=== PATIENT | female | born 1965 | race Caucasian/White ===

== ENCOUNTER 2024-06-06 12:46 | Emergency (ER) | payer BC, SELFPAY ==
--- OUTSIDE RECORDS SUMMARY | 2024-06-06 12:47 | XMS_ITS | Data Portability ---
Author Organization [employer] [employer], [id number] Address [address] [place] [address] Assessment No assessment recorded. Plan of Treatment Reminders Order Date Submit Date Provider Last Modified By Organization Details Last Modified Time Details Appointments None record ed. Lab None record ed. Referral None record ed. Procedures None record ed. Surgeries None record ed. Imaging None record ed. Medication Orders None record ed. Patient TargetsNo targets recorded. Patient InstructionsNo instructions recorded. Reason for Referral None Reported. Problems Name Problem SNOMED Code Status Onset Date Resolution Date Notes Provider Name and Address Organization Details Recorded Time Uses IUD (intraut erine device) contrace ption 919530458 Completed 201212/18/2020 Removal Reason: resolved Cici Clark(TE RM) null, [facility] [employer] 15:45:05 Pulmonar y embolism 01591299 Active 2020 Cici Clark(TE RM) null, [facility] [employer] 15:56:28 Deep venous thrombos is 749737214 Active 2020 Cici lCark(TE RM) null, [facility] [employer] 15:56:38 Problem Notes None recorded. Procedures Surgical History Date Name Laterality Status Provider Name and Address Organization Details Recorded Time 12/19/19 21 [facility] [place] [address] [facility],[address], [place], [address], [place] [employer] 12/18/2020 20:55:15 06/16/19 19 Date of Last Colonoscopy completed Cici Clark(TERM) [facility] 12/18/2020 15:55:54 06/14/19 19 Date of Last Pap Smear completed Cici Clark(TERM) [facility] 12/18/2020 15:55:54 03/08/20 15 Date of Last Mammogram completed Cici Clark(TERM) [facility] 12/18/2020 15:55:54 spontaneous unassisted delivery, medical personnel present completed Cici Clark(TERM) [facility] 12/18/2020 15:55:55 dilation and curettage completed Cici Clark(TERM) [facility] 12/18/2020 15:55:55 Dilation and Curettage completed Cici Clark(TERM) [facility] 12/18/2020 15:55:55 Colonoscopy completed Cici Clark(TERM) [facility] 12/18/2020 15:55:55 Tonsillectomy completed Cici Clark(TERM) [facility] 12/18/2020 15:55:55 Imaging Results None recorded. Procedure Notes None recorded. Medical Equipment None Reported. Allergies Allergen ID Allergen Name Allergen Category Reaction Reaction Severity Criticality Documentation Date Start Date Code Code System Note Provider Name and Address Organization Details Recorded Time 494625 Medicinal product containin g penicilli n and acting as antibacte rial agent (product) medicatio n rash Not available Not available 01/12/2020 19717 05 SNOMED Not Available [facility] 14:05:41 Medications Name Sig Start Date Stop Date Status Note LastModified by Organization Details LastModified Time Eliquis 5 mg tablet active Not Available Not Available Not Available Eliquis DVT-PE Treatment 30-Day Starter 5 mg (74 tablets) in dose pack active Not Available Not Available Not Available Vitals Date Recorded Body weight Body mass index (BMI) Body height Systolic blood pressure Diastolic blood pressure Provider Name and Address Organization Details Last Updated DateTime 12/18/2020 244724.7 4 g 44 kg/m2 170.18 cm 128 mm[Hg] 86 mm[Hg] Cici Clark(TE RM) [facility] 15:55:38 Social History Question Answer Notes LastModified by Organizat [employer] Details LastModified Time Tobacco Smoking Status Never Smoker never Not Available [facility] 01/13/2020 01:58:43 What Is Your Level Of Alcohol Consumption? Occasional Yes [email or web address] Information not available 01/13/2020 What Is Your Level Of Caffeine Consumption? Moderate Information not available 12/18/2020 Do You Or Have You Ever Used E-cigarettes Or Vape? Never Used Electronic Cigarettes Information not available 12/18/2020 History Of Domestic Violence No Information not available 12/18/2020 Marital Status Informatio n not available 12/18/2020 Sex: Unknown Functional Status Question Answer Note LastModified by Organizat ion Details LastModified Time What is your exercise level? Occasional walking Information not available 12/18/2020 Mental Status None recorded. Family History Relationship Description Onset Age of this Age Resolved Age Notes LastModified by Organization Details LastModified Time Maternal Grandfather Family history of Myocardial infarction Not available 12/18 15:55:54 Father Family history of cardiovascul ar disease in first degree female relative less than 65 years of age Not available 15:55:54 Father Congestive heart failure Not available 2020 15:55:54 Medical History Condition Response Endocrinology- History of Gestational Di abetes Y ID- Usual childhood diseases- Chicken Po x Y Gynecological History Statement/Question Response History of Abnormal PAP N HPV Test Negative Date of Last Mammogram 03/08/2015 Date of Last Diabetes Screening 08/07/19 19 12 Post Menopausal Hormone Therapy User Nev er Date of Last Colonoscopy 06/16/2018 History of Sexually Transmitted Infectio n N N HPV Vaccine Not Completed Current Control Method IUD Date of Last Pap Smear 06/14/2018 Date of Last Cholesterol Screening 08/06 Obstetrics History GPAL:G 1 P 1 0 2 1 Type Value Multiple Births 0 Full Term 1 Induced 0 Spontaneous 2 Premature 0 Living 1 Ectopics 0 Total 1 Past Encounters Encounter ID Performer Location Encounter Start Date Encounter Closed Date Diagnosis/Indication Diagnosis SNOMED-CT Code Diagnosis ICD10 Code [id number] DAYANARA KIM MD [id number] [address] [address] [place] [id number] 12/18/2020 15:47:56 12/18/2020 16:18:32 Removal of intrauterine device 79219397 Z30.432 Menopausal syndrome 1237 73026 N95.9 Body mass index 30+ - obesity 503712294 Z68.41 Health Concerns Section Related Observation LastModified by Organization Detai ls LastModified Time None Recorded Concern Status LastModified by Organization Details LastModified Time None Recorded Advance Directives Directive None Recorded Payers Encounter Date Sequence Insurance Name Policy Number Policy Gomes Covered Member ID Gomes Member ID Guarantor Name 12/18/2020 1 [place] [id number] Patricia Anderson [id number] Patricia Anderson Notes Date Note Type Note Provider Name and Address Organization Details Recorded Time 12/18/2020 text/html [place] [address] [facility],[address], [place], [address], [place] [facility] [employer] 12/18/2020 20:56:43 OBGyn Episode No OBEpisode recorded.
[2024-06-06 14:22] VITALS: BP 153/89; PULSE 72; RESP 16; TEMP 36.7; O2SAT 96; BMI 47.0
[2024-06-06 15:24] LABS: PCR FLU A Negative PCR FLU A (Negative); PCR FLU B Negative PCR FLU B (Negative); PCR RSV Negative PCR RSV (Negative); SARS PCR* Negative SARS-CoV-2 (Negative)
[2024-06-06 16:39] VITALS: PULSE 84; O2SAT 95
--- NOTE | 2024-06-06 16:58 | ED.GENADULT ---
HPI - General Adult General Chief complaint: Cough Stated complaint: cough x 5 days Time Seen by Provider: 06/06/24 16:31 History of Present Illness HPI narrative: This 59-year-old female comes in reporting cough for at least the past 5 days. She does not report any shortness of breath or fevers. She has been taking some jvjt-iov-aqfggbq medications without much relief. She arrives here with normal vital signs. Related Data Previous Rx's ?Medication ?Instructions ?Recorded acetaminophen 300 mg-codeine 30 mg 1 tab PO Q6H PRN pain #20 tabs 06/06/24 tablet methylprednisolone 4 mg tablets in See Rx Instructions PO .COMPLEX 06/06/24 a dose pack (Medrol (Ishan)) #21 ea Allergies Allergy/AdvReac Type Severity Reaction Status Date / Time Penicillins Allergy Unknown Verified 06/06/24 14:25 Review of Systems Status of ROS: Reports: 10 or more systems reviewed and unremarkable except as noted in History and below Narrative: Constitutional: No fevers, no weight gain or loss. Eyes: No discharge. No vision changes. HENT: No congestion, no sore throat, no ear pain. Cardiovascular: No chest pain, no palpitations. Respiratory: No shortness of breath, no wheezes. Frequent nonproductive cough. Gastrointestinal: No abdominal pain, no vomiting, no diarrhea. Genitourinary: No dysuria, no hematuria. Musculoskeletal: Normal range of motion. Skin: No rashes, no pruritis. Neurological: No dizziness, weakness, sensory change, speech change. Endo/Heme/Allergies: No bruising or bleeding. No polydipsia. Pysch: no suicidality, no anxiety, no insomnia. All other systems reviewed and are negative. Exam Narrative: Exam Narrative: Constitutional: Well-developed, well-nourished, no acute distress. HEENT: Normocephalic, atraumatic. Neck: Normal range of motion. Nontender. Supple. Heart: Regular. No murmurs. Normal rate. Intact distal pulses. Lungs: Clear to auscultation. No wheezes, rhonchi, or rales. Some mild chest discomfort when coughing. Abdomen: Normal bowel sounds. Nontender. No rebound tenderness. Genitalia: Deferred. Back: No midline tenderness. Normal range of motion. Extremities: Normal range of motion. No injury. Skin: Intact. No rash. Warm. No erythema or pallor. Neurologic: No altered sensation. No weakness. Alert and oriented. Psychiatric: No suicidality. No anxiety or depression. No insomnia. Nursing notes and vitals signs are reviewed. Const: Vital Signs, click to edit/add: Vital Signs - 24 hr 06/06/24 14:22 06/06/24 16:39 Temperature 98.0 F Pulse Rate [Pulse Oximeter] 72 84 Respiratory Rate 16 Blood Pressure [Ri t Upper Arm] 153/89 H Pulse Oximetry 96 95 Oxygen Delivery Me thod Room Air Room Air Course Vital Signs Vital signs: Initial Vital Signs Temperature 98.0 F 06/06/24 14:22 Temperature Source Temporal Artery Scan 06/06/24 14:22 Pulse Rate 72 06/06/24 14:22 Respiratory Rate 16 06/06/24 14:22 Blood Pressure 153/89 H 06/06/24 14:22 Blood Pressure Mean 110 H 06/06/24 14:22 Blood Pressure Position Sitting 06/06/24 14:22 Pulse Oximetry 96 06/06/24 14:22 Oxygen Delivery Method Room Air 06/06/24 14:22 Vital Signs Temperature 98.0 F 06/06/24 14:22 Pulse Rate 72 06/06/24 14:22 Respiratory Rate 16 06/06/24 14:22 Blood Pressure 153/89 H 06/06/24 14:22 Pulse Oximetry 96 06/06/24 14:22 Oxygen Delivery Method Room Air 06/06/24 14:22 Temperature 98.0 F 06/06/24 14:22 Pulse Rate 84 06/06/24 16:39 Respiratory Rate 16 06/06/24 14:22 Blood Pressure 153/89 H 06/06/24 14:22 Pulse Oximetry 95 06/06/24 16:39 Oxygen Delivery Method Room Air 06/06/24 16:39 Medical Decision Making MDM Narrative Medical decision making narrative: This patient comes in reporting persistent unrelenting cough over the past 5+ days. She arrives here with normal vital signs. Her lungs sound clear bilaterally and she is not using accessory muscles for breathing. A nasal pharyngeal swab returns negative for viruses tested. Most likely this patient does have a viral upper respiratory infection. Her exam and vital signs are reassuring. She did receive a prescription for some tablets of Tylenol 3 for symptomatic relief and also a prescription for Medrol Dosepak. I did advise her regarding signs and symptoms that would indicate a need for return and re-evaluation. Lab Data Labs: Lab Results 06/06/24 Range/Units 14:25 SARS-CoV-2 (PCR) Negative SARS-CoV-2 (Negative) Influenza Type A (PCR) Negative PCR FLU A (Negative) Influenza Type B (PCR) Negative PCR FLU B (Negative) RSV (PCR) Negative PCR RSV (Negative) Discharge Plan Discharge Clinical Impression: Acute upper respiratory infection Patient Disposition: Home, Self-Care Condition: Stable Additional Instructions: Take medication as needed and directed. Use dypq-zuo-lmpofbd medicines also as instructed. Follow up with MD return if worsening symptoms occur. Prescriptions: New acetaminophen-codeine 300-30 mg tablet 1 tab PO Q6H PRN (Reason: pain) Qty: 20 0RF methylprednisolone [Medrol (Ishan)] 4 mg tablets,dose pack See Rx Instructions .ROUTE .COMPLEX Qty: 21 0RF Rx Instructions: orally per package directions Stand Alone Forms: [employer] Info Instructions
--- OUTSIDE RECORDS SUMMARY | 2024-06-06 17:10 | XMS_ITS | Data Portability ---
Author Organization [place] [facility] [place] [facility] Address [address] [place] [address] Care Team Providers Care Building Construction Foreman Name Role Phone SEVERIANO MUNOZ Primary Care Provider Assessment Encounter Date Assessment Date Assessment LastModified by Organization Details LastModified Time 01/24/2021 01/24/2021 56 Y/O FEMALE, HX RT FLANK PAIN AND HEMATURIA. C.T. RT DISTAL STONE (6MM), ALSO ADDITIONAL NON OBSTRUCTIVE RT AND LEFT RENAL STONES. FIRST EPISODE. ON ELOQUIS FOR RECENT P.E. , DVT. REVIEWED FINDINGS. REVIEWED C.T. RESULTS INTERVIEW WITH PRESENT. PLAN SCHEDULE CYSTO, RT URS, HLL, POSSIBLE RT STENT. PROCEDURE EXPLAINED IN DETAIL. Not available 01/24/2021 12:36:41 Plan of Treatment Reminders Order Date Submit Date Provider Last Modified By Organization Details Last Modified Time Details Appointments None record ed. Lab None record ed. Referral None record ed. Procedures None record ed. Surgeries None record ed. Imaging None record ed. Medication Orders None record ed. Patient TargetsNo targets recorded. Patient Instructions Encounter Date Encounter Id Patient Instructions Last Modified By Organization Details Last Modified Time 05/26/2023 [id number] will plan follow up 1 year with KUB. call if problems develop [email or web address] Not available 05/26/2023 10:12:29 Reason for Referral None Reported. Results Created Date Observation Date Name Description Value Unit Range Abnormal Flag Note LastModifiedBy Organization Detail LastModifiedTime 01/25/20 21 01/22/2021 CT, abdom en + pelvi s, w/ contr ast No observ ation record ed. [email or web address] Not Available 2020 12:23:48 02/08/20 21 01/31/2021 XR, kidne y + urete r + bladd er No observ ation record ed. [email or web address] Not Available 2020 12:45:09 05/25/20 23 04/19/2023 CT, abdom en + pelvi s, w/o contr ast No observ ation record ed. [email or web address] Not Available 2022 15:46:43 Result Notes None recorded. Procedures Surgical History Date Name Laterality Status Provider Name and Address Organization Details Recorded Time colonoscopy completed Thom Claros MD [address] [facility] [address], [place], [address], [facility] 01/24/2021 12:15:21 tonsillectomy completed Murray Bland [facility] 05/26/2023 09:53:19 Imaging Results Imaging Date Name Status LastModified by Organiz ation Details LastModified Time 01/22/2021 CT, abdomen + pelvis, w/ contrast completed Information not available 01/24/2021 12:23:48 01/31/2021 XR, kidney + ureter + bladder completed [email or web address] Information not available 02/07/2021 12:45:09 04/19/2023 CT, abdomen + pelvis, w/o contrast completed Information not available 05/25/2023 15:46:43 Procedure Notes None recorded. Medical Equipment None Reported. Allergies Allergen ID Allergen Name Allergen Category Reaction Reaction Severity Criticality Documentation Date Start Date Code Code System Note Provider Name and Address Organization Details Recorded Time [id number] 0622714g5 2824e Medicinal product containin g penicilli n and acting as antibacte rial agent (product) medicatio n Not available Not available Not available 01/24/2021 63848 05 SNOMED Not Available Not Available Not Available Medications Name Sig Start Date Stop Date Status Note LastModified by Organization Details LastModified Time daylight mis 05/26 completed Not Available Not Available Not Available sleepio mis 05/26 completed Not Available Not Available Not Available ondansetron 8 mg disintegrat ing tablet 05/26 completed Not Available Not Available Not Available ketorolac 10 mg tablet 05/26 completed Not Available Not Available Not Available oxycodone-a cetaminophe n 5 mg-325 mg tablet 05/26 completed Not Available Not Available Not Available tamsulosin 0.4 mg capsule TAKE 1 CAPSULE BY MOUTH EVERY DAY AFTER A MEAL 05/26 completed Not Available Not Available Not Available ondansetron 4 mg disintegrat ing tablet 05/26 completed Not Available Not Available Not Available oxycodone 5 mg tablet 05/26 completed Not Available Not Available Not Available Eliquis 5 mg tablet 05/26 completed Not Available Not Available Not Available Eliquis DVT-PE Treatment 30-Day Starter 5 mg (74 tablets) in dose pack 05/26 completed Not Available Not Available Not Available BinaxNOW COVID-19 Ag Self Test kit Use as Directed on the Package 05/26 completed Not Available Not Available Not Available Vitals Date Recorded Body height Body mass index (BMI) Body weight Provider Name and Address Organization Details Last Updated DateTime 05/26/2023 170.18 cm 43.9 kg/m2 874872.[address] [facility] 05/26/2023 09:52:00 Date Recorded Body height Body mass index (BMI) Body weight Provider Name and Address Organization Details Last Updated DateTime 01/24/2021 170.18 cm 43.9 kg/m2 376134.86 g Thom Claros MD [address] [place] [address], [address] 01/24/2021 12:14:25 Social History Question Answer Notes LastModified by Organizat ion Details LastModified Time Tobacco Smoking Status Never Smoker Thom Claros MD [address] [place] [address],[address], [address] 01/24/2021 12:14:51 What Is Your Level Of Alcohol Consumption? Moderate Information not available 05/26/2023 What Is Your Level Of Caffeine Consumption? 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 01/24/2021 Information not available 01/24/2021 Sex: Unknown Functional Status None recorded. Mental Status None recorded. Family History Relationship Description Onset Age of this Age Resolved Age Notes LastModified by Organization Details LastModified Time Father Family history of cardiac disorder [email or web address] Not available 2022 09:52:52 Sister Family history of renal stone [email or web address] Not available 05/08 09:53:00 Medical History Condition Response Sexually Transmitted Infection N Diabetes N Other N Bleeding Disorder N High Blood Pressure N Kidney Stones Y High Cholesterol N GERD/Acid Reflux N Heart Disease N Cancer N Lung Disease N Depression N Gynecological HistoryNo gynecological history recorded. Obstetrics History GPAL:G 1 P 0 0 0 0 Immunizations Vaccine Type Date Status Note Provider Nam e and Address Organization Details Recorded Time Influenza, MDCK, quadrivalent, PF 1 completed Qing sutherland [facility] 05/26/2023 15:34:44 COVID-19, mRNA, LNP-S, PF, 30 mcg/0.3 mL dose [facility] 15:34:44 COVID-19 vaccine, vector-nr, rS-Ad26, PF, 0.5 mL [facility] 15:34:44 COVID-19, mRNA, LNP-S, bivalent, PF, 30 mcg/0.3 mL dose 3 completed Qing sutherland [facility] 05/26/2023 15:34:44 [facility]dap [facility] 15:34:44 Influenza, split virus, trivalent, preservative 4 completed Qing sutherland [facility] 05/26/2023 15:34:44 Influenza, split virus, trivalent, PF 0 [facility] 15:34:44 Past Encounters Encounter ID Performer Location Encounter Start Date Encounter Closed Date Diagnosis/Indication Diagnosis SNOMED-CT Code Diagnosis ICD10 Code [id number] Thom Claros MD [facility] [address] [place] [address] 01/24/2021 11:29:56 01/28/2021 14:03:58 Ureteric stone 32705855 N20.1 Right flank pain 1118423 09 R10.9 [id number] Brian Wong MD [facility] [address] [place] [address] 05/26/2023 09:32:23 06/09/2023 11:31:56 Ureteric stone 28088558 N20.1 Health Concerns Section Related Observation LastModified by Organization Detai ls LastModified Time None Recorded Concern Status LastModified by Organization Details LastModified Time None Recorded Advance Directives Directive None Recorded Payers Encounter Date Sequence Insurance Name Policy Number Policy Gomes Covered Member ID Gomes Member ID Guarantor Name 01/24/2021 1 [place] [id number] Patricia Holcomber [id number] Patricia Anderson 05/26/2023 1 [place] [id number] Patricia Anderson [id number] Patricia Holcomber Notes Date Note Type Note Provider Name and Address Organization Details Recorded Time 01/24/2021 text/html 56 yo female here today from [place], SEEN FOR RT DISTAL URETERAL STONE, HEMATURIA. ALSO NOTED WERE SMALL STONES IN RT KIDNEY. ALSO SMALL LEFT RENAL STONES.PRESENTL Y PAIN FREE. FIRST EPISODE.ON ELOQUIS FOR PE,DVT. Thom Claros MD [address] [place] [address],[address], [place], [address], [facility] 01/24/2021 12:37:11 05/26/2023 text/html seeing for left ureteral stone dx'ed 04/[address], no pain since a day after that. was 3mm distal left ureter, has several small stones in both kidneys. had right URS with laser 2020 for ca oxalate stone. UA tr RBC today. Brian Wong MD [address] [place] [address],[address], [place], [address], [facility] 05/26/2023 10:13:42 OBGyn Episode No OBEpisode recorded.
[2024-06-06 17:14] VITALS: PULSE 83; O2SAT 96
== END 2024-06-06 17:16 | disposition home or self-care (01) ==
LOC: ED 17:09
PROVIDERS: Emergency Provider Emergency Medicine Emergency Medical Services
DX: J06.9 Acute upper respiratory infection, unspecified (principal)
CPT/HCPCS: 87631; 99282; 99283; 99284